=== PATIENT | male | born 1985 | race Two or more races ===

== ENCOUNTER 2019-08-31 01:57 | Day surgery (SDC) | payer OTHER ==
[~2019-08-31] VITALS: Ht 170.2 cm; Wt 98.9 kg
--- NOTE | 2019-08-31 02:21 | NUR ---
pt c/o epigastric pain all day yesterday vss stable alarm security or surveillance monitor vss dr castaneda at bedside
[2019-08-31] MEDS ORDERED: ONDANSETRON 2MG/ML, 2ML ONE (02:27)
[2019-08-31] MEDS ORDERED: MORPHINE SULFATE 4 MG/ML, 1ML ONE ×2 (02:27→03:51)
[2019-08-31] MEDS ORDERED: ONDANSETRON 2MG/ML, 2ML IVPush ONE (02:30)
[2019-08-31] MEDS: MORPHINE SULFATE 4 MG/ML, 1ML IVPush PRN ×2 (02:37→03:56)
--- NOTE | 2019-08-31 03:04 | NUR ---
medicated then pt went to us no iv fluids infusing will let md know
[2019-08-31 03:12] LABS: BASOPHILS # (AUTO) 0.07 x10^3/uL (0-0.1); BASOPHILS % (AUTO) 1 % (0-1); EOSINOPHILS # (AUTO) 0.02 x10^3/uL (0-0.4); EOSINOPHILS % (AUTO) 0 % (1-7); LYMPHOCYTES # (AUTO) 1.51 x10^3/uL (1-3.4); LYMPHOCYTES % (AUTO) 10 % (22-44); MD NO; MEAN CORPUSCULAR HEMOGLOBIN 29.7 pg (27.5-34.5); MEAN CORPUSCULAR HGB CONC 34.1 g/dL (33.2-36.2); MEAN CORPUSCULAR VOLUME 87.1 fL (81-97); MEAN PLATELET VOLUME 9.3 fL (7.4-10.4); MONOCYTES # (AUTO) 1.02 x10^3/uL (0.2-0.8); MONOCYTES % (AUTO) 7 % (2-9); NEUTROPHILS # (AUTO) 11.92 x10^3/uL (1.8-6.8); NEUTROPHILS % (AUTO) 82 % (42-75); PLATELET COUNT 257 x10^3/uL (130-400); RED BLOOD COUNT 5.57 x10^6/uL (4.38-5.82); RED CELL DISTRIBUTION WIDTH 13.1 % (9.4-14.8)
[2019-08-31 03:18] LABS: ALANINE AMINOTRANSFERASE 39 U/L (12-78); ALBUMIN 3.9 g/dL (3.4-5.0); ANION GAP 8 mmol/L (5-15); CALCIUM 9.1 mg/dL (8.5-10.1); CHLORIDE 103 mmol/L (98-107)
[2019-08-31 03:20] LABS: ALKALINE PHOSPHATASE 73 U/L (45-117); BILIRUBIN,TOTAL 0.8 mg/dL (0.2-1.0); TOTAL PROTEIN 7.6 g/dL (6.4-8.2)
--- NOTE | 2019-08-31 04:01 | NUR ---
given another dose of morphine iv per pt's pain dr castaneda at bed side discussed poc applied oxygen via [place] 2 liters d/t after given 2nd morphine
--- NOTE | 2019-08-31 04:26 | NUR ---
pt is sleeping vss rechecked
--- NOTE | 2019-08-31 05:07 | NUR ---
pt's pain came back md was notified pt will be admitted dr castaneda calling surgeon
[2019-08-31] MEDS ORDERED: SODIUM CHLORIDE 0.9% 1,000 ML IV ONE (05:24)
[2019-08-31] MEDS ORDERED: CEFOTETAN PMX 1GM/50ML 50 ML ONE (05:28)
[2019-08-31] MEDS ORDERED: MORPHINE SULFATE 4 MG/ML, 1ML IVPush PRN ×2 (05:30→06:30)
[2019-08-31] MEDS ORDERED: ONDANSETRON 2MG/ML, 2ML IVPush PRN (05:30)
[2019-08-31] MEDS ORDERED: CEFOTETAN PMX 1GM/50ML 50 ML IV ONE (05:30)
[2019-08-31] MEDS ORDERED: BUPIVACAINE/PF-EPI 0.5% 1:200K ONE (05:30)
--- NOTE | 2019-08-31 05:35 | NUR ---
given report to OR iv abx was infusing pt was taken to OR by staff
[2019-08-31 05:36] VITALS: BP 177/99
[2019-08-31] MEDS ORDERED: FENTANYL PF 250 MCG/5ML ONE ×2 (06:02→06:42)
[2019-08-31] MEDS ORDERED: MIDAZOLAM 1 MG/ML, 2ML ONE (06:03)
[2019-08-31] MEDS ORDERED: BUPIVACAINE/PF-EPI 0.5% 1:200K INFIL ONE (06:06)
[2019-08-31] MEDS ORDERED: LABETALOL 5MG/ML, 20ML IV PRN (06:30)
[2019-08-31] MEDS ORDERED: hydrALAzine 20 MG/ML, 1ML IV PRN (06:30)
[2019-08-31] MEDS ORDERED: HYDROmorphone 2 MG/ML, 1ML IVPush PRN (06:30)
[2019-08-31] MEDS ORDERED: FENTANYL PF 100 MCG/2ML IV PRN (06:30)
[2019-08-31] MEDS ORDERED: ONDANSETRON 2MG/ML, 2ML IV PRN (06:30)
[2019-08-31] MEDS ORDERED: MEPERIDINE/PF 25MG/ML,1ML IVPush PRN (06:30)
[2019-08-31] MEDS ORDERED: OXYcodone 5 MG/5 ML ORAL.SOL UDC PO PRN (06:30)
[2019-08-31] MEDS ORDERED: ACETAMINOPHEN 325 MG TABLET PO PRN (06:30)
[2019-08-31] MEDS ORDERED: NEOSTIGMINE 1 MG/ML, 10ML ONE (06:42)
[2019-08-31] MEDS ORDERED: PROPOFOL 10 MG/ML, 20ML ONE (06:42)
[2019-08-31] MEDS ORDERED: GLYCOPYRROLATE 0.2MG/1ML, 5ML ONE (06:42)
[2019-08-31] MEDS ORDERED: ROCURONIUM 10MG/ML,5ML ONE (06:42)
[2019-08-31] MEDS ORDERED: SUCCINYLCHOLINE 20 MG/ML, 10ML ONE (06:42)
== END 2019-08-31 11:50 | disposition home or self-care (01) ==
LOC: ED 05:17 → UNDOADMIN 05:24 → EDIP 05:24 → SDC 05:24 → EDSTATUS 11:44 → SDC 11:50 → ED 12:00
PROVIDERS: ATTEND Student in an Organized Health Care Education/Training Program
DX: K80.12 Calculus of gallbladder with acute and chronic cholecystitis without obstruction (principal); K82.8 Other specified diseases of gallbladder; F17.200 Nicotine dependence, unspecified, uncomplicated
CPT/HCPCS: 36415; 47562; 76700; 80053; 83690; 85025; 88304; 93005; J0330; J2250; J2270; J2405; J2704; J2710; J3010; J3490